=== PATIENT | female | born 1985 | race Caucasian/White ===

== ENCOUNTER 2023-09-26 08:23 | Outpatient (CLI) | payer BC, SELFPAY | END 2023-09-26 08:24 | disposition home or self-care (01) | LOC: NFLDREF 09-28 04:18 | PROVIDERS: Visit Provider Physician Assistant | DX: Z01.419 Encounter for gynecological examination (general) (routine) without abnormal findings (principal); E78.5 Hyperlipidemia, unspecified; K76.0 Fatty (change of) liver, not elsewhere classified; E66.01 Morbid (severe) obesity due to excess calories; F41.9 Anxiety disorder, unspecified | CPT/HCPCS: 80053; 80061 ==

== ENCOUNTER 2024-03-07 08:06 | Outpatient (CLI) | payer BC, SELFPAY | END 2024-03-07 08:07 | disposition home or self-care (01) | PROVIDERS: PCP Physician Assistant Medical; Visit Provider Physician Assistant Medical | DX: E78.5 Hyperlipidemia, unspecified (principal); R79.89 Other specified abnormal findings of blood chemistry | CPT/HCPCS: 80061; 80076 ==

== ENCOUNTER 2024-07-05 07:25 | Outpatient (CLI) | payer BC, SELFPAY ==
--- NOTE | 2024-07-05 07:45 | CRLHL7_ITS ---
For Patients: As a result of the Century Cures Act, medical imaging exams and procedure reports are released immediately into your electronic medical record. You may view this report before your referring provider. If you have questions, please contact your health care provider. DIGITAL DIAGNOSTIC BILATERAL MAMMOGRAM USING TOMOSYNTHESIS AND COMPUTER-AIDED DETECTION LEFT AXILLARY ULTRASOUND CLINICAL HISTORY: LEFT breast pain. COMPARISON: None. TECHNIQUE: Digital BILATERAL mammogram in four projections with computer-aided detection. Tomosynthesis was used in this interpretation. Real-time ultrasound imaging of LEFT breast with imaging documentation. BREAST COMPOSITION: There are areas of scattered fibroglandular density. FINDINGS: 3D CC/MLO BILATERAL mammogram images submitted. No suspicious mass or architectural distortion. No adenopathy or suspicious calcifications. Targeted ultrasound performed in the LEFT axilla. Normal LEFT axillary lymph nodes are present. No suspicious findings. IMPRESSION: No evidence of malignancy. RECOMMENDATIONS: Annual BILATERAL screening mammography. Results and recommendations discussed with the patient. BI-RADS Category 2: Benign A lay language report of this examination will be provided to the patient. Dictated by Braden Bahena MD @ 07/05/2024 9:13:12 AM /Dictated by: Braden Bahena MD @ 07/05/2024 9:13:00 AM (Electronically Signed)
--- NOTE | 2024-07-05 08:15 | CRLHL7_ITS ---
For Patients: As a result of the Cures Act, medical imaging exams and procedure reports are released immediately into your electronic medical record. You may view this report before your referring provider. If you have questions, please contact your health care provider. PLEASE SEE DIGITAL DIAGNOSTIC BILATERAL MAMMOGRAM PERFORMED SAME DAY CRL:[email or web address]/Dictated by: Braden Bahena MD @ 07/05/2024 10:14:00 AM (Electronically Signed)
== END 2024-07-05 07:26 | disposition home or self-care (01) ==
LOC: MAMMO 07:26
PROVIDERS: PCP Physician Assistant Medical; Visit Provider Physician Assistant Medical
DX: N64.4 Mastodynia (principal); R22.32 Localized swelling, mass and lump, left upper limb
CPT/HCPCS: 76882; 77066; G0279

== ENCOUNTER 2024-10-03 08:22 | Outpatient (CLI) | payer BC, SELFPAY ==
[2024-10-03 17:12] LABS: Chlamydia DNA Amplified* NOT DETECTED (No Detected); GC DNA Amplified* NOT DETECTED (No Detected)
[2024-10-06 02:28] LABS: HPV Source Cervix; HPV, High Risk by TMA Not Detected
== END 2024-10-03 08:23 | disposition home or self-care (01) ==
PROVIDERS: PCP Physician Assistant Medical; Visit Provider Physician Assistant Medical
DX: E78.5 Hyperlipidemia, unspecified (principal); Z13.29 Encounter for screening for other suspected endocrine disorder; Z12.4 Encounter for screening for malignant neoplasm of cervix; Z11.3 Encounter for screening for infections with a predominantly sexual mode of transmission; Z11.59 Encounter for screening for other viral diseases; Z11.4 Encounter for screening for human immunodeficiency virus [HIV]
CPT/HCPCS: 80053; 80061; 84443; 86703; 86803; 87491; 87591; 87624; 87625; 88141; 88142

== ENCOUNTER 2025-01-03 08:04 | Outpatient (CLI) | payer BC, SELFPAY | END 2025-01-03 08:05 | disposition home or self-care (01) | LOC: NFLDREF 01-10 02:18 | PROVIDERS: PCP Physician Assistant Medical; Referring Provider Physician Assistant Medical; Visit Provider Physician Assistant Medical | DX: R79.89 Other specified abnormal findings of blood chemistry (principal); E78.5 Hyperlipidemia, unspecified | CPT/HCPCS: 80061; 80076 ==

== ENCOUNTER 2025-04-23 08:05 | Outpatient (CLI) | payer BC, SELFPAY | END 2025-04-23 08:06 | disposition home or self-care (01) | LOC: NFLDREF 04-25 14:04 | PROVIDERS: PCP Physician Assistant Medical; Referring Provider Physician Assistant Medical; Visit Provider Physician Assistant Medical | DX: E78.1 Pure hyperglyceridemia (principal) | CPT/HCPCS: 80061 ==